=== PATIENT | female | born 1990 | race Caucasian/White ===

== ENCOUNTER 2020-02-19 16:58 | Outpatient (CLI) | payer BC ==
[~2020-02-19] VITALS: Ht 160 cm; Wt 67.7 kg
[2020-02-19 17:12] VITALS: BP 100/62
[2020-02-19] MEDS ORDERED: MV-M1TAB16 PO (17:26)
[2020-02-19] MEDS ORDERED: PREN1TAB60 PO (17:26)
== END 2020-02-19 19:17 | disposition home or self-care (01) ==
LOC: LDOP 16:58
PROVIDERS: ATTEND Obstetrics & Gynecology
DX: O26.893 Other specified pregnancy related conditions, third trimester (principal); R10.9 Unspecified abdominal pain; Z3A.30 30 weeks gestation of pregnancy
CPT/HCPCS: 59025; 99211; G0463

== ENCOUNTER 2020-04-28 09:43 | Inpatient (IN) | payer BC ==
[~2020-04-28] VITALS: Ht 160 cm; Wt 74.5 kg
[~2020-04-28 09:43] MED LIST: MV-M1TAB16 PO; PREN1TAB60 PO
[2020-04-28] MEDS ORDERED: OXYTOCIN 30U/ 0.9% NaCL 500ML 500 ML IV ONE (20:22)
[2020-04-28] MEDS: D5%-LACTATED RINGERS 1,000 ML IV SCH (20:22)
[2020-04-28] MEDS: LACTATED RINGERS 1,000 ML IV SCH (20:22)
[2020-04-28] MEDS ORDERED: OXYTOCIN 30U/ 0.9% NaCL 500ML 500 ML IV PRN (20:22)
[2020-04-28 20:30] VITALS: BP 115/64
[2020-04-28] MEDS ORDERED: FENTANYL PF 100 MCG/2ML IVPush PRN (20:30)
[2020-04-28] MEDS ORDERED: ALUMINUM/MAG/SIMETHICONE 30 ML UDC PO PRN (20:30)
[2020-04-28] MEDS ORDERED: TERBUTALINE 1 MG/ML, 1ML SQ PRN (20:30)
[2020-04-28] MEDS ORDERED: TERBUTALINE 1 MG/ML, 1ML IVPush PRN (20:30)
[2020-04-28] MEDS ORDERED: CALCIUM CARBONATE 500 MG TAB.CHEW PO PRN (20:30)
[2020-04-28] MEDS ORDERED: MISOPROSTOL 25 MCG TABLET VG PRN (20:30)
[2020-04-28] MEDS ORDERED: PLEASE ENTER HEIGHT AND WEIGHT MC SCH (20:30)
[2020-04-28] MEDS ORDERED: FENTANYL PF 100 MCG/2ML IV PRN (20:30)
[2020-04-28 21:01] LABS: BASOPHILS # (AUTO) 0.09 x10^3/uL (0-0.1); BASOPHILS % (AUTO) 1 % (0-1); EOSINOPHILS % (AUTO) 0 % (1-7); LYMPHOCYTES # (AUTO) 1.96 x10^3/uL (1-3.4); LYMPHOCYTES % (AUTO) 22 % (22-44); MD NO; MEAN CORPUSCULAR HEMOGLOBIN 31.6 pg (27.0-34.8); MEAN CORPUSCULAR HGB CONC 33.8 g/dL (32.4-35.8); MEAN PLATELET VOLUME 12.5 fL (7.4-10.4); MONOCYTES # (AUTO) 0.86 x10^3/uL (0.2-0.8); MONOCYTES % (AUTO) 10 % (2-9); NEUTROPHILS # (AUTO) 5.98 x10^3/uL (1.8-6.8); NEUTROPHILS % (AUTO) 67 % (42-75); PLATELET COUNT 153 x10^3/uL (130-400); RED BLOOD COUNT 3.68 x10^6/uL (3.82-5.3); RED CELL DISTRIBUTION WIDTH 14.4 % (9.6-15.2)
[2020-04-28] MEDS ORDERED: OXYTOCIN 30U/ 0.9% NaCL 500ML 500 ML ONE (21:16)
[2020-04-28] MEDS ORDERED: NEWBORN KIT ONE (21:16)
[2020-04-28] MEDS ORDERED: FENTANYL/BUPIV./NS/PF 250 ML EPIDCONT SCH (22:03)
[2020-04-29] MEDS: LACTATED RINGERS 1,000 ML IV SCH ×4 (04:06→19:58)
[2020-04-29] MEDS: D5%-LACTATED RINGERS 1,000 ML IV SCH ×2 (04:22→19:59)
[2020-04-29 08:07] VITALS: BP 103/62
[2020-04-29] MEDS ORDERED: ONDANSETRON 2MG/ML, 2ML ONE ×2 (08:51→23:00)
[2020-04-29] MEDS: ONDANSETRON 2MG/ML, 2ML IVPush PRN ×2 (08:53→23:03)
[2020-04-29] MEDS: LACTATED RINGERS 1,000 ML IVBOLUS PRN ×3 (09:57→11:09)
[2020-04-29] MEDS ORDERED: FENTANYL/BUPIV./NS/PF 0 ML EPIDCONT ONE (10:10)
[2020-04-29] MEDS ORDERED: FENTANYL PF 100 MCG/2ML ONE (10:24)
[2020-04-29] MEDS ORDERED: BUPIVACAINE 0.25% ONE (10:42)
[2020-04-29] MEDS ORDERED: FENTANYL/BUPIV./NS/PF 250 ML EPIDCONT ONE (10:42)
[2020-04-29] MEDS ORDERED: FENTANYL/BUPIV./NS/PF 250 ML EPIDCONT SCH (11:03)
[2020-04-29] MEDS ORDERED: NALOXONE 0.4 MG/ML, 1ML IVPush PRN (11:30)
[2020-04-29] MEDS ORDERED: EPHEDRINE 50 MG/ML, 1ML IVPush PRN (11:30)
[2020-04-29] MEDS ORDERED: LACTATED RINGERS 1,000 ML IVBOLUS PRN (11:30)
[2020-04-29] MEDS ORDERED: ONDANSETRON 2MG/ML, 2ML IVPush PRN (11:30)
[2020-04-29] MEDS ORDERED: DIPHENHYDRAMINE 50 MG/ML, 1ML IVPush PRN (11:30)
[2020-04-29] MEDS ORDERED: DIPHENHYDRAMINE 25 MG CAPSULE ONE (18:23)
[2020-04-29] MEDS ORDERED: DIPHENHYDRAMINE 25 MG CAPSULE PO ONE (18:30)
[2020-04-29 20:15] VITALS: BP 103/58
[2020-04-29] MEDS ORDERED: LIDOCAINE/MPF 2%-EPI 1:200K, 20 ML ONE (22:04)
[2020-04-30] MEDS ORDERED: DIPHENHYDRAMINE 50 MG/ML, 1ML ONE (00:27)
[2020-04-30] MEDS ORDERED: LIDOCAINE/MPF 2%-EPI 1:200K, 20 ML ONE (01:13)
[2020-04-30] MEDS ORDERED: METOCLOPRAMIDE 5 MG/ML, 2ML ONE (01:14)
[2020-04-30] MEDS ORDERED: SODIUM CITRATE/CITRIC ACID 30 ML UDC ONE (01:14)
[2020-04-30] MEDS ORDERED: morphine SULFATE/PF 1 MG/ML, 10ML ONE (01:30)
[2020-04-30] MEDS ORDERED: LACTATED RINGERS 1,000 ML IVBOLUS ONE (01:30)
[2020-04-30] MEDS ORDERED: SODIUM CITRATE/CITRIC ACID 30 ML UDC PO ONE (01:30)
[2020-04-30] MEDS ORDERED: METOCLOPRAMIDE 5 MG/ML, 2ML IV ONE (01:30)
[2020-04-30] MEDS ORDERED: CEFAZOLIN 1,000 MG ONE (01:31)
[2020-04-30] MEDS ORDERED: WATER-INJECTION,STERILE 10 ML IV ONE (01:31)
[2020-04-30] MEDS ORDERED: ONDANSETRON 2MG/ML, 2ML ONE (01:31)
[2020-04-30] MEDS ORDERED: KETOROLAC 30 MG/1 ML ONE (01:31)
[2020-04-30] MEDS ORDERED: OXYTOCIN 10 UNITS/ML, 1ML ONE (01:31)
[2020-04-30] MEDS ORDERED: DEXAMETHASONE 4 MG/ML, 1ML ONE (01:31)
[2020-04-30] MEDS ORDERED: LABETALOL 5MG/ML, 20ML ONE (01:55)
[2020-04-30] MEDS ORDERED: AZITHROMYCIN 500 MG in SODIUM CHLORIDE 0.9% 250 ML IV ONE (02:00)
[2020-04-30] MEDS ORDERED: OXYTOCIN 30U/ 0.9% NaCL 500ML 500 ML IV SCH (02:26)
[2020-04-30] MEDS ORDERED: LACTATED RINGERS 1,000 ML IV SCH ×2 (02:26)
[2020-04-30] MEDS ORDERED: MORPHINE SULFATE 4 MG/ML, 1ML IVPush PRN (02:30)
[2020-04-30] MEDS ORDERED: ONDANSETRON 2MG/ML, 2ML IV PRN (02:30)
[2020-04-30] MEDS ORDERED: morphine SULFATE 10 MG/ML, 1ML IVPush PRN (02:30)
[2020-04-30] MEDS ORDERED: OXYcodone/APAP 5/325MG TABLET PO PRN (02:30)
[2020-04-30] MEDS ORDERED: MISOPROSTOL 200 MCG TABLET PR PRN (02:30)
[2020-04-30] MEDS ORDERED: SIMETHICONE 80 MG CHEW TAB PO PRN (02:30)
[2020-04-30] MEDS ORDERED: MEPERIDINE/PF 100 MG/ML IVPush PRN (02:30)
[2020-04-30] MEDS ORDERED: KETOROLAC 30 MG/1 ML IV PRN (02:30)
[2020-04-30] MEDS ORDERED: METHYLERGONOVINE 0.2 MG/ML IM PRN (02:30)
[2020-04-30] MEDS ORDERED: OXYcodone 5 MG/5 ML ORAL.SOL UDC ONE (03:33)
[2020-04-30] MEDS ORDERED: OXYTOCIN 30U/ 0.9% NaCL 500ML 500 ML ONE (03:33)
[2020-04-30 05:00] VITALS: BP 115/68
[2020-04-30 08:30] VITALS: BP 109/70
[2020-04-30] MEDS: KETOROLAC 30 MG/1 ML IV SCH ×4 (08:30→21:43)
[2020-04-30] MEDS: DOCUSATE 100 MG CAPSULE PO PRN (09:33)
[2020-04-30] MEDS: PRENATAL VIT/IRON/FA 1 EACH TABLET PO SCH (09:33)
[2020-04-30 09:53] LABS: MEAN CORPUSCULAR HEMOGLOBIN 30.5 pg (27.0-34.8); MEAN PLATELET VOLUME 9.6 fL (7.4-10.4); PLATELET COUNT 120 x10^3/uL (130-400); RED BLOOD COUNT 3.48 x10^6/uL (3.82-5.3); RED CELL DISTRIBUTION WIDTH 14.2 % (9.6-15.2)
[2020-04-30] MEDS: OXYcodone/APAP 5/325MG TABLET PO PRN ×2 (10:00→16:57)
[2020-04-30 10:29] LABS: MD YES
[2020-04-30 10:37] LABS: BANDS%(MANUAL) 11 % (0-7); LYMPHS% (MANUAL) 5 % (22-44); MONOS% (MANUAL) 4 % (2-9); SEGS% (MANUAL) 80 % (42-75)
[2020-04-30 10:39] LABS: ANISOCYTOSIS 1+; POLYCHROMASIA 1+
[2020-04-30 10:40] LABS: <PLATELET ESTIMATE> DECREASED
[2020-04-30 10:41] LABS: LARGE PLATELETS 1+
[2020-04-30 12:00] VITALS: BP 107/69
[2020-04-30 16:00] VITALS: BP 92/58
[2020-04-30 20:00] VITALS: BP 94/62
[2020-05-01 00:30] VITALS: BP 96/62
[2020-05-01] MEDS: IBUPROFEN 600 MG TABLET PO PRN ×4 (01:47→21:11)
[2020-05-01] MEDS: OXYcodone/APAP 5/325MG TABLET PO PRN ×5 (01:50→21:11)
[2020-05-01] MEDS: KETOROLAC 30 MG/1 ML IV SCH ×2 (03:20→09:30)
[2020-05-01] MEDS: PRENATAL VIT/IRON/FA 1 EACH TABLET PO SCH (07:19)
[2020-05-01] MEDS: DOCUSATE 100 MG CAPSULE PO PRN ×2 (07:19→21:10)
[2020-05-01 07:46] VITALS: BP 108/75
[2020-05-01] MEDS ORDERED: ONDANSETRON ODT 4 MG PO PRN (17:00)
[2020-05-01 20:00] VITALS: BP 116/80
[2020-05-02] MEDS: IBUPROFEN 600 MG TABLET PO PRN ×2 (02:45→09:25)
[2020-05-02] MEDS: OXYcodone/APAP 5/325MG TABLET PO PRN (02:46)
[2020-05-02 07:30] VITALS: BP 97/66
[2020-05-02] MEDS: DOCUSATE 100 MG CAPSULE PO PRN (09:25)
[2020-05-02] MEDS: PRENATAL VIT/IRON/FA 1 EACH TABLET PO SCH (09:26)
[2020-05-02] MEDS ORDERED: IBUP-1223 PO (12:13)
[2020-05-02] MEDS ORDERED: DOCU-131 PO (12:13)
[2020-05-02] MEDS ORDERED: OXYC-302 PO (12:14)
== END 2020-05-02 13:20 | disposition home or self-care (01) | DRG 787 ==
LOC: LDIP 20:17 → 2NW 04-30 04:38
PROVIDERS: ADMIT Obstetrics & Gynecology; ATTEND Obstetrics & Gynecology
PROC: 3E033VJ Introduction of Other Hormone into Peripheral Vein, Percutaneous Approach (ICD-10-PCS; 2020-04-28)
PROC: 3E0R3BZ Introduction of Anesthetic Agent into Spinal Canal, Percutaneous Approach (ICD-10-PCS; 2020-04-28)
PROC: 00HU33Z Insertion of Infusion Device into Spinal Canal, Percutaneous Approach (ICD-10-PCS; 2020-04-28)
PROC: 10D00Z1 Extraction of Products of Conception, Low, Open Approach (ICD-10-PCS; principal; 2020-04-30)
PROC: 10907ZC Drainage of Amniotic Fluid, Therapeutic from Products of Conception, Via Natural or Artificial Opening (ICD-10-PCS; 2020-04-30)
DX: O48.0 Post-term pregnancy (principal); O63.9 Long labor, unspecified; O69.81X0 Labor and delivery complicated by cord around neck, without compression, not applicable or unspecified; O76 Abnormality in fetal heart rate and rhythm complicating labor and delivery; Z37.0 Single live birth; Z3A.40 40 weeks gestation of pregnancy; Z82.49 Family history of ischemic heart disease and other diseases of the circulatory system; Z83.3 Family history of diabetes mellitus
CPT/HCPCS: 36415; J7121; 82803; 85025; 86592; 86850; 86900; 87635; G0378; J0690; J1100; J1885; J2274; J2405; Q0162; J1200; J2590; J2765; J7120; Q0163